=== PATIENT | male | born 1955 | race Caucasian/White ===

== ENCOUNTER → 2017-09-14 | Outpatient (CLI) | payer OTHER ==
[~2017-09-14] VITALS: Ht 175.3 cm; Wt 77.1 kg
[~2017-09-14] MED LIST: CELEXA20 MG PO; DESONIDE CR. 1515 GM TOP; ZANTAC 150MG T150 MG PO
--- NOTE | ~2017-09-14 | P ---
[facility] [place] [address] PROCEDURE REPORT Name: GARY OLIVA Room #: REG [facility]#: [id number] Admission: 09/14/17 Attend Phys: Westley De La Torre Discharge: Date of : 57 Report #: [id number] THIS REPORT FOR: //name// CC: Westley BAGLEY DO Tika Bagley DATE OF SERVICE: 09/14/2017 PROCEDURE PERFORMED: Colonoscopy with biopsies. HISTORY OF PRESENT ILLNESS: The patient is a 62-year-old male who presents today for routine screening colonoscopy. He denies any symptoms. No family history of colon cancer. DESCRIPTION OF PROCEDURE: The risks and benefits of the procedure were explained to the patient, those risks including but not limited to bleeding, perforation, the risk of sedation. He understood these risks and gave informed consent. Sedation was given using propofol per anesthesia. Next, a digital rectal exam was initially performed, which was normal. Next, using a standard Fujinon colonoscope, the scope was placed in the patient's anus and advanced under direct vision to the cecum. The overall prep was excellent. The cecum and ileocecal valve were normal in appearance. Terminal ileum was intubated and normal in appearance. Ascending, transverse and descending colon were normal. In the sigmoid colon, a 4-mm sessile polyp was noted. This was removed with cold forceps, otherwise normal. The rectal mucosa was normal. On retroflexion, no abnormalities were noted. The scope was then withdrawn and the procedure terminated. The patient tolerated the procedure well. IMPRESSION: 1. Small colonic polyp. 2. Otherwise, normal colonoscopy. RECOMMENDATIONS: 1. Await biopsy results. 2. If polyp is hyperplastic, repeat in 10 years; if adenomatous, repeat in 5 years. Thank you for allowing me to participate in his care. <ELECTRONICALLY SIGNED> By: Westley Smith MD 09/14/17 1417 0853 1209 Westley Smith MD /nt
--- NOTE | ~2017-09-14 | S ---
[facility] [place] [address] SURGICAL PATH RPT PROCEDURE Name: YG YUEN Room #: REG [facility].#: [id number] Admission: 09/14/17 Date of : 57 Discharge: Report #: [id number] Path Case #: [id number] PATHOLOGY REPORT COLLECTION DATE: 09/14/2017 RECEIVED DATE: 09/14/2017 SUBMITTING PHYS: Dr. Westley Smith OTHER PHYS: Dr. Tika Bagley SPECIMEN(S) RECEIVED: A.Sigmoid colon * * * * * * * * * * * * FINAL DIAGNOSIS: Polyps, sigmoid colon, endoscopic biopsy: - Minute tubular adenoma without high-grade dysplasia. - One fragment showing a hyperplastic polyp along with a lymphoid aggregate without any dysplasia. (IUV:mgr; 09/17/2017) PATHOLOGIST: Shaina Rojas M.D. REPORT ELECTRONICALLY SIGNED BY: Shaina Rojas M.D. DATE/TIME: 09/17/2017 14:23 * * * * * * * * * * * * GROSS PATHOLOGY: Received in formalin labeled "Yg Yuen, BX of sigmoid colon," are 2 segments of welch soft tissue measuring 0.8 x 0.2 x 0.3 cm in aggregate dimensions and 0.4 cm each in maximum dimension. The specimen is submitted entirely in cassette A1. (TSD; 09/14/2017) CLINICAL HISTORY: Pre-OP DX: Screening Post-OP DX: Colon polyp, esophagitis, reflux INITIAL CPT CODE(S): A; 15267 Professional services performed by [facility] at [facility] [address], [place] [address] Technical services performed by [facility] at [address] [place] [id number]. [facility] [address] [place] [address] SURGICAL PATH RPT PROCEDURE Name: YG YUEN Room #: REG [facility]#: [id number] Admission: 09/14/17 Date of : 57 Discharge: Report #: [id number] Path Case #: [id number] [address] PHONE: [phone] DIRECTOR: Jose Franco M.D. * * * END OF REPORT * * *
--- NOTE | ~2017-09-14 | P ---
[facility] [place] [address] PROCEDURE REPORT Name: GARY OLIVA [id number] Admission: 09/14/17 Attend Phys: Westley De La Torre Discharge: Date of : 57 Report #: [id number] THIS REPORT FOR: //name// CC: Westley Bagley DO DATE OF SERVICE: 09/14/2017 PROCEDURE PERFORMED: Upper endoscopy. HISTORY OF PRESENT ILLNESS: The patient is a 62-year-old male with intermittent heartburn symptoms. He takes over the counter antacids on a p.r.n. basis. He denies any dysphagia. No previous history of upper endoscopy. PROCEDURE: The risks and benefits of the procedure were explained to the patient, those risks including, but not limited to bleeding, perforation, and the risk of sedation. He understood these risks and gave informed consent. Sedation was given using propofol per anesthesia. Next, using a standard Transphormn upper endoscope, the scope was placed in the patient's mouth and advanced under direct vision through the esophagus, stomach and into the second portion of the duodenum. The larynx was normal in appearance. The upper and mid esophagus was normal. At the GE junction, there was a grade A erosive esophagitis, mild. Overall, the gastric mucosa was normal. The pylorus was normal and patent. The duodenal bulb, first and second portion were all normal. The scope was then withdrawn and the procedure terminated. The patient tolerated the procedure well. IMPRESSION: 1. Mild grade A erosive esophagitis. 2. Otherwise, normal upper endoscopy. RECOMMENDATIONS: Recommend trial of daily PPI therapy. Thank you for allowing me to participate in his care. <ELECTRONICALLY SIGNED> By: Westley Smith MD 09/14/17 1417 0829 1210 Westley Smith MD /nt
== END | disposition home or self-care (01) ==
LOC: GI 07:03
DX: Z12.11 Encounter for screening for malignant neoplasm of colon (principal); D12.5 Benign neoplasm of sigmoid colon; K63.5 Polyp of colon; K22.10 Ulcer of esophagus without bleeding; K21.9 Gastro-esophageal reflux disease without esophagitis; F32.89 Other specified depressive episodes; Z90.49 Acquired absence of other specified parts of digestive tract; Z98.890 Other specified postprocedural states; Z87.891 Personal history of nicotine dependence; Z88.0 Allergy status to penicillin; Z79.899 Other long term (current) drug therapy
CPT/HCPCS: 62110; 62900

== ENCOUNTER → 2017-09-28 | Outpatient (CLI) | payer OTHER | LOC: SLEEPLAB 12:46 | DX: G47.33 Obstructive sleep apnea (adult) (pediatric) (principal) ==

== ENCOUNTER → 2018-03-08 | Outpatient (CLI) | payer OTHER | LOC: RAD 10:33 | DX: R91.8 Other nonspecific abnormal finding of lung field (principal) ==

== ENCOUNTER → 2018-03-26 | Outpatient (CLI) | payer OTHER | LOC: RAD 09:06 | DX: R06.02 Shortness of breath (principal) ==